=== PATIENT | female | born 1965 | race Caucasian/White ===

== ENCOUNTER 2023-11-20 05:45 | Day surgery (SDC) | payer OTHER ==
[2023-11-20] MEDS: LACTATED RINGERS 1,000 ML IV SCH (06:42)
[2023-11-20] MEDS: DEXAMETHASONE SOD PHOSPHATE 4 MG/ML 1 ML VIAL IV ONE (06:42)
[2023-11-20] MEDS: ONDANSETRON 4 MG/2 ML VIAL IVP ONE ×2 (06:42→10:47)
[2023-11-20] MEDS: SCOPOLAMINE 1 MG/72 HR PATCH TRANSDERM ONE (06:43)
[2023-11-20] MEDS: MIDAZOLAM 2 MG/2 ML VIAL IV PRN (06:53)
[2023-11-20] MEDS: fentaNYL (PF) 50 MCG/1 ML VIAL IVP ONE ×3 (06:53→10:12)
[2023-11-20] MEDS ORDERED: PROPOFOL 10 MG/ML 20 ML VIAL IV ONE (07:24)
[2023-11-20] MEDS ORDERED: LIDOCAINE 1% INJ 10MG/ML (20 ML MDV) ONE (07:24)
[2023-11-20] MEDS ORDERED: fentaNYL (PF) 50 MCG/ML 2 ML AMP ONE (07:24)
[2023-11-20] MEDS ORDERED: MIDAZOLAM 2 MG/2 ML VIAL ONE (07:24)
[2023-11-20] MEDS ORDERED: SODIUM CHLORIDE 0.9% (PF) 10 ML VIAL ONE (07:24)
[2023-11-20] MEDS ORDERED: ROPIVACAINE 5 MG/ML 30 ML VIAL ONE (07:24)
[2023-11-20] MEDS: LACTATED RINGERS 1,000 ML IV ONE (08:52)
[2023-11-20] MEDS: HYDROmorphone 0.5 MG/0.5 ML SYRINGE IVP PRN (09:39)
--- NOTE | 2023-11-20 09:51 | P.OP ---
Date of Procedure: 11/20/23 Preoperative Diagnosis: 1. Ankle instability left 2. Pes cavus left 3. Gastroc equinus left Postoperative Diagnosis: 1. Same 2. Same 3. Same Procedure(s) Performed: 1. Subtalar joint arthrodesis left foot 2. Dorsiflexory osteotomy first metatarsal left foot 3. Gastroc recession left leg Implants: creed 7.0mm and 5.5mm screws Medline compression staple marx ankle augment 10 mL bone allograft Anesthesia: MADELIN Surgeon: Candido Orourke Estimated Blood Loss (ml): 5 Pathology: none sent Condition: stable Disposition: PACU Description of Procedure: Prior to the patient being brought to the operating room, anesthesia administered a nerve block and left lower extremity. The patient was brought into the operating room and placed on the table in the supine position. Timeout was taken to confirm correct patient identifiers, correct lateral of surgery, and correct procedure. Once the staff in the room were in agreement with the timeout, the patient was induced and placed under general anesthesia. A well- padded tourniquet was placed on the left thigh. A wedge was placed underneath the left hip to internally rotate the left leg. The left leg was then prepped and draped in the usual manner. The leg was exsanguinated and the tourniquet inflated to 250 mmHg. Attention was directed over the sinus tarsi area of the foot. Curved incision was made over this area. It was deepened down to the saphenous tissue careful to identify, avoid, and retract any neurovascular structures and cauterize any bleeding vessels. Blunt dissection was taken down to the subtalar joint capsule. The capsule was incised sharply releasing the interosseous ligament as well as the calcaneofibular ligament to allow complete exposure of the joint. Pins were distractor placed in the calcaneus and the talus. The distractor was placed over the pins and then opened to distract the joint. A 4 mm wedge bur was used to remove the remaining articular cartilage and subchondral bone. Burring was continued until there was bleeding medullary bone of both surfaces. The wound is irrigated thoroughly with sterile saline. A mixture of 10 mL of bone allograft as well as augment were mixed together and the back table and then placed between the arthrodesis segments. The distractor was released and fluoroscopy was used to check the alignment and bone contact of the subtalar joint. There was good bone contact at the arthrodesis site as well as correction of the varus deformity of the subtalar joint. With the subtalar joint held in correction guidewires for the screws were placed in the posterior lateral calcaneus and advanced in a distal medial and superior direction to and then the body of the talus. Fluoroscopy confirmed the proper positioning of the initial wire. A 7.0 mm cannulated screw was inserted over the wire and advanced and tightened until the proximal threads engaged the cortex of the calcaneus. Fluoroscopic imaging showed that the screw was properly aligned and that bone contact was maintained at the subtalar joint arthrodesis. A second wire for 5.0 mm screw was placed just superior to the first. A was oriented in a similar direction but just slightly lateral to the first. Another screw was placed over the wire and advanced until the proximal threads engaged the cortex of the calcaneus. Final fluoroscopic imaging showed proper placement of the screws as well as good compression at the arthrodesis site. Visually the joint was identified through the incision and was noted to be compressed. The wound is irrigated thoroughly with sterile saline. Deep closure was done with 0 Vicryl. Subcu closure done with 4-0 Monocryl. And skin closure done with 4-0 STRATAFIX in a running subcuticular manner. then attention was directed over the dorsal aspect of the first metatarsal. Fluoroscopy was used to find the proximal one third of the metatarsal shaft. This is marked the location of the osteotomy. An incision was made on the dorsomedial aspect between the neurovascular structures and the long extensor tendon. The incision was deepened down to the subcutaneous tissue careful to identify, avoid, and retract any neurovascular structures and cauterize any bleeding vessels. Blunt dissection was continued down to the periosteum. The extensor tendon was carefully dissected and retracted laterally. The saw was placed on the dorsal aspect of the first metatarsal perpendicular to the long access. Position was checked under fluoroscopy to make sure was in the proximal one third of the shaft. The osteotomy was performed from dorsal to plantar leaving the plantar cortical hinge intact a second osteotomy was performed in a V fashion just proximal to the first and the interposing wedge of bone was removed. The osteotomy was slightly feathered until it was easily dorsiflexed and reduced where there was even bony contact. A drill guide for a compression staple was placed on the dorsal aspect of the first metatarsal across the osteotomy. The first hole was drilled proximal and then a staff development coordinator rn pin was placed and that drill hole. The drill guide was adjusted so that was centrally located the first metatarsal shaft. And then the second drill hole was done. While drilling was done the osteotomy was held in compression. The drill guide as well as the staff development coordinator rn pins were removed, and then the compression staple was inserted and released so that the legs of the staple was started providing compr ession. A tamp was used to impact the jie that was flush to bone. Fluoroscopic imaging showed good compression of the osteotomy and proper placement of the hardware. Visually with the foot forefoot held in neutral position the alignment of the metatarsals was even. The wound is irrigated thoroughly with sterile saline. Subcutaneous closure was done with 2-0 Vicryl. And skin closure was done with 4-0 STRATAFIX in a running subcuticular manner. Attention was then directed over the posterior medial aspect of the calf. An incision was made over the Achilles tendon aponeurosis distal to the gastroc muscle belly. The incision was deepened down to the subcutaneous tissue there for to identify, avoid, and retract any neurovascular structures and cauterize any bleeding vessels. Blunt dissection was continued down to the deep fascia. The fascia was incised over the aponeurosis and then the tissue was reflected bluntly from the aponeurosis. The aponeurosis is mobilizing transverse incision was made from lateral to medial through the aponeurosis taking care to prevent significant trauma to the underlying muscle belly. Once released ankle was dorsiflexed and a 1.5 cm to 2.0 cm gap appeared indicating a full release. The wound was irrigated thoroughly with antibiotic saline. Deep closure was done with 0 Vicryl. Subcu closure done with 4-0 Monocryl. And skin closure done with 4-0 STRATAFIX in a running subcuticular manner. Arthrex jumpstart dressings were placed over the incisions. A dry sterile dressings applied to left foot and ankle. The tourniquet was released and capillary refill return to all digits on the left foot. The patient's placed a well-padded, well molded plaster posterior mold/sugar tong splint. Ankle and foot were held in maximum dorsiflexion and eversion distal splint was fully dried. Then anesthesia was reversed and the patient was taken recovery with vital signs stable
[2023-11-20 10:08] VITALS: TEMP 98.1
[2023-11-20] MEDS: MIDAZOLAM 2 MG/2 ML VIAL IVP ONE (10:09)
[2023-11-20] MEDS: diphenhydrAMINE 50 MG/ML 1 ML VIAL IVP ONE ×2 (11:53→12:00)
[2023-11-20] MEDS: FAMOTIDINE 20 MG/2 ML VIAL IVP ONE ×2 (11:54→12:00)
--- NOTE | 2023-11-20 13:23 | P.ANPRN ---
Procedure Note - Anesthesia - Nerve Block Performed Left Popliteal Single Time Out Performed: Yes (0652) Date of Procedure: 11/20/23 Procedure Start Time: 06:53 Procedure Stop Time: 06:57 Location of Patient: PreOp Indication: Acute Post-Operative Pain, Requested by Surgeon Specifically requested for management of pain by DrTere: Candido Orourke Sedation Type: Sedate with meaningful contact maintained Preparation: Sterile Prep Position: Supine Catheter: None Needle Types: Pajunk Needle Gauge: 21 Ultrasound used to visualize needle placement: Yes Ultrasound used to observe medication spread: Yes Injectate: 0.5% Ropivacaine (see comment for volume) (15cc+ 10cc nacl pf) Blood Aspirated: No Pain Paresthesia on Injection Noted: No Resistance on Injection: Normal Image Stored and Saved: Yes Events: Uneventful and Well Tolerated
--- NOTE | 2023-11-20 13:23 | P.ANPRN ---
Procedure Note - Anesthesia - Nerve Block Performed Left Adductor Canal Single Time Out Performed: Yes (0652) Date of Procedure: 11/20/23 Procedure Start Time: 06:58 Procedure Stop Time: 06:59 Location of Patient: PreOp Indication: Acute Post-Operative Pain, Requested by Surgeon Specifically requested for management of pain by DrTere: Candido Orourke Sedation Type: Sedate with meaningful contact maintained Preparation: Sterile Prep Position: Supine Catheter: None Needle Types: Pajunk Needle Gauge: 21 Ultrasound used to visualize needle placement: Yes Ultrasound used to observe medication spread: Yes Injectate: 0.5% Ropivacaine (see comment for volume) (15cc +10cc nacl pf) Blood Aspirated: No Pain Paresthesia on Injection Noted: No Resistance on Injection: Normal Image Stored and Saved: Yes Events: Uneventful and Well Tolerated
[2023-11-20 15:02] VITALS: BP 152/84; PULSE 62; RESP 18
== END 2023-11-20 14:06 | disposition home or self-care (01) ==
LOC: OR 05:45
PROVIDERS: ATTEND Podiatrist
DX: M25.372 Other instability, left ankle (principal); Q66.72 Congenital pes cavus, left foot; G89.18 Other acute postprocedural pain; K21.9 Gastro-esophageal reflux disease without esophagitis; F10.90 Alcohol use, unspecified, uncomplicated; Z87.891 Personal history of nicotine dependence
CPT/HCPCS: 28725; 28306; 27687; 64447; 64445; C1713 ×2; J2250; J1200; J1100; J0690; J2405; J2001; J3010 ×2; J3490; J2795; J2704; J1170

== ENCOUNTER 2024-11-25 07:03 | Day surgery (SDC) | payer OTHER ==
[~2024-11-25 07:03] MED LIST: Pre Op ABX Message 1 EACH MISC MISCELLANE ONE
[2024-11-25] MEDS: IV FLUID CONTINUATION 1,000 ML IV ONE (07:27)
[2024-11-25] MEDS: SCOPOLAMINE 1 MG/72 HR PATCH TRANSDERM ONE (07:53)
[2024-11-25] MEDS: ONDANSETRON 4 MG/2 ML VIAL IVP ONE (07:53)
[2024-11-25] MEDS: DEXAMETHASONE SOD PHOSPHATE 4 MG/ML 1 ML VIAL IV ONE (07:53)
[2024-11-25] MEDS: LACTATED RINGERS 1,000 ML IV SCH (07:54)
[2024-11-25] MEDS: MIDAZOLAM 2 MG/2 ML VIAL IV PRN (08:06)
[2024-11-25] MEDS ORDERED: DEXAMETHASONE SOD PHOSPHATE 4 MG/ML 1 ML VIAL ONE (09:00)
[2024-11-25] MEDS ORDERED: SUCCINYLCHOLINE CHLORIDE 200 MG/10 ML VIAL IV ONE (09:00)
[2024-11-25] MEDS ORDERED: LIDOCAINE 1% INJ 10MG/ML (20 ML MDV) ONE (09:00)
[2024-11-25] MEDS ORDERED: fentaNYL (PF) 50 MCG/ML 2 ML AMP ONE (09:00)
[2024-11-25] MEDS ORDERED: ePHEDrine 50 MG/ML 1 ML VIAL ONE (09:00)
[2024-11-25] MEDS ORDERED: SODIUM CHLORIDE 0.9% (PF) 10 ML VIAL ONE (09:00)
[2024-11-25] MEDS ORDERED: LIDOCAINE 4% LTA KIT (4 ML) TOPICAL ONE (09:00)
[2024-11-25] MEDS ORDERED: PROPOFOL 10 MG/ML 20 ML VIAL IV ONE (09:00)
[2024-11-25] MEDS ORDERED: PHENYLEPHRINE-0.9% NACL SYG 1,000 MCG/10 ML SYRINGE ONE (09:00)
[2024-11-25] MEDS ORDERED: ROPIVACAINE 5 MG/ML 30 ML VIAL ONE (09:00)
[2024-11-25] MEDS: SODIUM CHLORIDE 0.9% 100 ML with ceFAZolin 2,000 MG IV ONE (09:04)
[2024-11-25] MEDS: LACTATED RINGERS 1,000 ML IV ONE (09:35)
[2024-11-25] MEDS: ceFAZolin 1,000 MG in SODIUM CHLORIDE 0.9% 1,000 ML IRRIGATION ONE (09:35)
--- NOTE | 2024-11-25 10:09 | P.ANPRN ---
Procedure Note - Anesthesia - Nerve Block Performed Left Popliteal Single Time Out Performed: Yes (805) Date of Procedure: 11/25/24 Procedure Start Time: :07 Procedure Stop Time: 08:10 Location of Patient: PreOp Indication: Acute Post-Operative Pain, Requested by Surgeon Specifically requested for management of pain by DrTere: Candido Orourke Sedation Type: Sedate with meaningful contact maintained Preparation: Sterile Prep Position: Right Lateral Catheter: None Needle Types: Pajunk Needle Gauge: 21 Ultrasound used to visualize needle placement: Yes Ultrasound used to observe medication spread: Yes Injectate: 0.5% Ropivacaine (see comment for volume) (15cc+10cc nacl pf +Decadron 4mg) Blood Aspirated: No Pain Paresthesia on Injection Noted: No Resistance on Injection: Normal Image Stored and Saved: Yes Events: Uneventful and Well Tolerated
--- NOTE | 2024-11-25 10:10 | P.ANPRN ---
Procedure Note - Anesthesia - Nerve Block Performed Left Adductor Canal Single Time Out Performed: Yes (805) Date of Procedure: 11/25/24 Procedure Start Time: 08:11 Procedure Stop Time: 08:13 Location of Patient: PreOp Indication: Acute Post-Operative Pain, Requested by Surgeon Specifically requested for management of pain by DrTere: Candido Orourke Sedation Type: Sedate with meaningful contact maintained Preparation: Sterile Prep Position: Supine Catheter: None Needle Types: Pajunk Needle Gauge: 21 Ultrasound used to visualize needle placement: Yes Ultrasound used to observe medication spread: Yes Injectate: 0.5% Ropivacaine (see comment for volume) (15cc+10cc nacl pf +Decadron 4mg) Blood Aspirated: No Pain Paresthesia on Injection Noted: No Resistance on Injection: Normal Image Stored and Saved: Yes Events: Uneventful and Well Tolerated
[2024-11-25] MEDS: HYDROmorphone 0.5 MG/0.5 ML SYRINGE IVP PRN (11:12)
[2024-11-25] MEDS: droPERidol 2.5 MG/ML VIAL IVP ONE (11:21)
--- NOTE | 2024-11-25 11:22 | XR ---
EXAMINATION TYPE: XR ankle limited LT, FL guidance operating room DATE OF EXAM: 11/25/2024 10:27 AM COMPARISON: CLINICAL INDICATION: Female, 59 years old with history of Hardware Removal; PHH, pain Fluoroscopy: 3 images are submitted showing cannulated percutaneous 2 screw placement within the calcaneus and acr oss the posterior subtalar joint. HARDWARE PLACEMENT DR. RONAK JEAN TIME 125 SEC DAP: [id number] [facility], Workstation: [facility], 11/25/2024 11:20 AM
--- NOTE | 2024-11-25 11:29 | P.OP ---
Date of Procedure: 11/25/24 Preoperative Diagnosis: 1. Acquired deformity left foot 2. osteophyte left foot 3. retained hardware left foot Postoperative Diagnosis: 1. Acquired deformity left foot 2. left ankle instability 3. osteophyte left foot 4. retained hardware left foot Procedure(s) Performed: 1. Lateral displacement calcaneal osteotomy left foot 2. Secondary repair left lateral ankle ligaments 3. Partial excision of bone fifth metatarsal left foot 4. Removal deep hardware left foot Implants: Arthrex 7.0 mm fully threaded headless screws x 2 Arthrex internal brace Arthrex fiber tack anchors x 2 Anesthesia: MARVINA Surgeon: Candido Orourke Estimated Blood Loss (ml): 5 Pathology: none sent Condition: stable Disposition: PACU Description of Procedure: Prior to the patient being brought to the op room, anesthesia administered nerve block on the left lower extremity. The patient was brought into the op room placed on table supine position. Timeout was taken to confirm correct patient identifiers, correct laterality of surgery, correct procedure. Once all staff in the room was in agreement with a timeout, the patient was induced and placed under general anesthesia. A well-padded tourniquet was was placed in the left thigh. The patient was then rolled into the right lateral decubitus positioning on the table. The beanbag was deflated to hold the patient in place. Pillows were placed between the arms and knees to protect the bony prominence. An axill janny roll was placed under the right shoulder. Once positioning was achieved and approved by anesthesia, the left leg was prepped and draped usual manner. The left leg was exsanguinated and the tourniquet plated to 250 mmHg. Using fluoroscopy, the location of the screws for the previous subtalar joint fusion were identified and then skin christensen were made to triangulate the location of the screws. Small incisions were made over this area. Guidewires were able to be placed through the cannulas of the screws. The screwdriver was placed over the wire and engaged the screw. Both screws were removed intact and without complication. Then attention was directed to the calcaneal osteotomy. Lateral views were obtained with fluoroscopy. A metallic marker was used to indicate the location of the incision for the bur placement to complete the osteotomy. A K wire was inserted through the plantar aspect of the foot and advanced through the calcaneus in the area where the osteotomy was to be performed. The K wire act as a guide for the direction of the bur. A small stab incision was made and then an elevator used to remove the tissue only from the lateral cortical wall of the calcaneus. The bur was inserted through the lateral cortical wall of the calcaneus and advanced medially making sure to stay perpendicular to the long axis of the calcaneus. Using the quadrant technique, a calcaneal osteotomy was completed utilizing the previously placed K wire as a guide. Indications of the osteotomy was completed as that the line where the bone was resected compressed. The K wire was removed and the posterior tuber of the calcaneus was shifted as far lateral as possible. An elevator was inserted through the incision and into the medullary canal of the calcaneus to maintain this correction. Guidewires were placed to the posterior aspect of the calcaneus for the placement of the screw and to maintain the position of the osteotomy. Fluoroscopic imaging showed proper placement of wires in the lateral view as well as the axial calcaneal view. Only the tuber as far lateral as possible, drilling was done over the guidewires and then the screws were inserted across the guidewires and advanced until the heads engaged the posterior cortex of the calcaneus and compressed the osteotomy. Final fluoroscopic imaging showed proper placement of the hardware as well as maintained position of the osteotomy. Visually, the calcaneal body was now lateral to the midline of the tibia. Then a small incision was made just proximal to the fifth metatarsal base. The elevator was used to remove the soft tissue of the fifth metatarsal base. A 2.9 mm wedge bur was then used to resect the hypertrophic bone until it was palpably smooth again. All areas were thoroughly irrigated with antibiotic saline. All bone paste was expressed through the incisions where osteotomies were performed. And then the areas were irrigated again. Under live fluoroscopy, stress testing of the ankle was performed. There is significant talar tilt and anterior drawer present. The decision was made to perform a lateral ankle stabilization. An incision was made just off the anterior surface of the lateral malleolus. It was deepened down to the subcutaneous tissue careful to identify, avoid, and retract any neurovascular structures and cauterize any bleeding vessels. Blunt dissection was carried down to the lateral ankle joint capsule. The capsular and ligamentous structures were sharply incised off the anterior surface of the lateral malleolus. A rongeur was used to remove the cortical bone on the anterior surface of the lateral malleolus to aid in facilitating the ligaments to readhere upon repair. A drill hole for the 4.75 anchor was then made into the lateral talus just anterior to the articular surface, where the body in the neck emerged. The drill hole was tapped and then a 4.75 swivel lock anchor was inserted and advanced down to the stops. The same drill bit was used on the lateral malleolus for the 3.5 mm anchor. Drill holes for the fiber tack anchors were made, 1 superior and 1 inferior to the 3.5 mm drill hole. The anchors were inserted and impacted down the proper depth. The suture on the anchors was utilized to perform a horizontal mattress stitch through the distal ligamentous structures. And then that suture was passed through the shuttle suture for the knotless technique. The suture was then pulled tight once it was passed through which brought the ligaments against the lateral malleolus. This was repeated for the second anchor. While these sutures were being tightened, the ankle was held in maximum dorsiflexion and eversion and posterior translation. The suture arms from the 4.75 anchor were then placed through the eyelet of the 3.5 mm anc hor the eyelet was aligned with the drill hole in the lateral malleolus. Tensioning techniques were utilized for the insertion of the anchor. The anchor was advanced into the bone until it stopped. The ankle was tested again under fluoroscopy which showed that there was no longer positive anterior drawer or inversion stress. The rest of the capsule was repaired with 2-0 Vicryl. Subcutaneous closure was done for Monocryl. Skin closure done with 3-0 nylon. All other incisions were also closed with 3-0 nylon. Arthrex jumpstart was placed over all the incisions. A bulky dry dressing was applied to the left ankle. The tourniquet was released and capillary refill returned all digits on the left foot. The patient was placed in a well-padded, well molded plaster posterior mold/sugar-tong splint. The ankle was held in dorsiflexion and eversion until the splint was fully dried. Anesthesia was reversed and the patient was taken recovery with vital signs stable.
[2024-11-25 11:30] VITALS: TEMP 97.4
[2024-11-25 12:44] VITALS: RESP 16
[2024-11-25 14:02] VITALS: BP 105/69; PULSE 90
== END 2024-11-25 14:41 | disposition home or self-care (01) ==
LOC: OR 07:03
PROVIDERS: ATTEND Podiatrist
DX: M21.6X2 Other acquired deformities of left foot (principal); M25.372 Other instability, left ankle; M25.775 Osteophyte, left foot; G89.18 Other acute postprocedural pain; Z98.890 Other specified postprocedural states; Z96.89 Presence of other specified functional implants; Z91.048 Other nonmedicinal substance allergy status
CPT/HCPCS: 28300; 28122; 27698; 64447; 64445; 73600; C1713 ×2; J2250; J0330; J1100; J2405; J0690; J2003; J3010; J2795; J2704; J1171; J2371; J1790